=== PATIENT | female | born 1995 ===

== ENCOUNTER 2021-06-26 12:43 | Emergency (ER) | payer SELFPAY ==
[2021-06-26 13:25] VITALS: BP 105/65
[2021-06-26 15:41] LABS: Hematocrit 39.6 % (30.3-42.9); Hemoglobin 12.9 gm/dl (10.1-14.3); Mean Corpuscular HGB Conc 33 % (30-34); Mean Corpuscular Volume 92 fl (79-97); Platelet Count 267 K/mm3 (140-440); Red Blood Count 4.32 M/mm3 (3.65-5.03); Red Cell Distribution Width 13.8 % (13.2-15.2)
[2021-06-26 15:49] LABS: Alanine Aminotransferase 12 units/L (7-56); Albumin 4.6 g/dL (3.9-5); Blood Urea Nitrogen 11 mg/dL (7-17); Calcium 9.9 mg/dL (8.4-10.2); Hemolysis Index 9
[2021-06-26 15:50] LABS: BUN/Creatinine Ratio 16
--- NOTE | 2021-06-26 16:27 | Emergency Department Report ---
ED General Adult HPI - General Chief complaint: Medical Clearance Stated complaint: LEFT ARM PAIN/CHEST PAIN PUI?: No Time Seen by Provider: 06/26/21 15:23 Source: patient Mode of arrival: Ambulatory Limitations: No Limitations - History of Present Illness Initial comments: Patient is a 26-year-old male that comes to the emergency room complaining of left-sided chest pain and arm pain. Note that the person was born a male but identifies as a female. Patient is on hormone therapy including estrogen, progesterone, spironaldactone; abilify, zoloft and lithium Patient denies abdominal pain. Denies fever or chills. Denies cough or congestion. Denies shortness of breath. Denies discharge. Denies back pain. -: Gradual, year(s) Radiation: non-radiation Quality: stabbing Consistency: intermittent Improves with: none Worsens with: none Associated Symptoms: denies other symptoms, chest pain. denies: confusion, cough, diaphoresis, fever/chills, headaches, loss of appetite, malaise, nausea/vomiting, rash, seizure, shortness of breath, syncope, weakness Treatments Prior to Arrival: none - Related Data Allergies Allergy/AdvReac Type Severity Reaction Status Date / Time No Known Allergies Allergy Unverified 06/26/21 13:26 ED Review of Systems ROS: Stated complaint: LEFT ARM PAIN/CHEST PAIN Other details as noted in HPI Comment: All other systems reviewed and negative ED Past Medical Hx - Past Medical History Previous Medical History?: Yes Hx Psychiatric Treatment: Yes (bipolar) Additional medical history: Gender male, taking female hormones. - Surgical History Past Surgical History?: No - Family History Family history: no significant - Social History Smoking Status: Current Every Day Smoker Substance Use Type: Alcohol ED Physical Exam - General Limitations: No Limitations General appearance: alert, in no apparent distress - Head Head exam: Present: atraumatic, normocephalic - Eye Eye exam: Present: normal appearance - ENT ENT exam: Present: mucous membranes moist - Neck Neck exam: Present: normal inspection - Respiratory Respiratory exam: Present: normal lung sounds bilaterally. Absent: respiratory distress - Cardiovascular Cardiovascular Exam: Present: regular rate, normal rhythm. Absent: systolic murmur, diastolic murmur, rubs, gallop - GI/Abdominal GI/Abdominal exam: Present: soft, normal bowel sounds - Extremities Exam Extremities exam: Present: normal inspection - Back Exam Back exam: Present: normal inspection - Neurological Exam Neurological exam: Present: alert, oriented X3 - Psychiatric Psychiatric exam: Present: normal affect, normal mood - Skin Skin exam: Present: warm, dry, intact, normal color. Absent: rash ED Course Vital Signs 06/26/21 13:20 Temperature 98.5 F Pulse Rate 73 Respiratory 14 Rate Blood Pressure 105/65 O2 Sat by Pulse 98 Oximetry ED Medical Decision Making - Lab Data Result diagrams: 06/26/21 15:10 06/26/21 15:10 - EKG Data EKG shows normal: sinus rhythm Rate: normal - EKG Data When compared to previous EKG there are: no significant change Interpretation: no acute changes - Radiology Data Radiology results: report reviewed, image reviewed No acute process - Medical Decision Making Lab Results 06/26/21 06/26/21 06/26/21 Range/Units 15:10 15:10 16:19 WBC 17.8 H (4.5-11.0) K/mm3 RBC 4.32 (3.65-5.03) M/mm3 Hgb 12.9 (10.1-14.3) gm/dl Hct 39.6 (30.3-42.9) % MCV 92 (79-97) fl MCH 30 (28-32) pg MCHC 33 (30-34) % RDW 13.8 (13.2-15.2) % Plt Count 267 (140-440) K/mm3 Sodium 135 L (137-145) mmol/L Potassium 4.1 (3.6-5.0) mmol/L Chloride 99.5 (98-107) mmol/L Carbon Dioxide 26 (22-30) mmol/L Anion Gap 14 mmol/L BUN 11 (7-17) mg/dL Creatinine 0.7 (0.6-1.2) mg/dL Estimated GFR > 60 ml/min BUN/Creatinine Ratio 16 % Glucose 108 H (65-100) mg/dL Calcium 9.9 (8.4-10.2) mg/dL Phosphorus 3.50 (2.5-4.5) mg/dL Magnesium 2.00 (1.7-2.3) mg/dL Total Bilirubin < 0.20 (0.1-1.2) mg/dL AST 14 (5-40) units/L ALT 12 (7-56) units/L Alkaline Phosphatase 50 (35-129) units/L Total Protein 6.9 (6.3-8.2) g/dL Albumin 4.6 (3.9-5) g/dL Albumin/Globulin Ratio 2.0 % Urine Color Colorless (Yellow) Urine Turbidity Clear (Clear) Urine pH 7.0 (5.0-7.0) Ur Specific [place] 1.004 (1.003-1.030) Urine Protein <15 mg/dl (Negative) mg/dL Urine Glucose (UA) Neg (Negative) mg/dL Urine Ketones Neg (Negative) mg/dL Urine Blood Neg (Negative) Urine Nitrite Neg (Negative) Urine Bilirubin Neg (Negative) Urine Urobilinogen < 2.0 (<2.0) mg/dL Ur Leukocyte Esterase Neg (Negative) Urine WBC (Auto) < 1.0 (0.0-6.0) /HPF Urine RBC (Auto) 1.0 (0.0-6.0) /HPF U Epithel Cells (Auto) < 1.0 (0-13.0) /HPF Urine HCG, Qual Positive A (Negative) Vital Signs 06/26/21 13:20 Temperature 98.5 F Pulse Rate 73 Respiratory 14 Rate Blood Pressure 105/65 O2 Sat by Pulse 98 Oximetry False positive test noted. Patient on spironolactone. UA noted Labs noted WBC noted. Patient has no fever or chills. No cough. No abdominal pain. No back pain. Urine noted. Chest x-ray noted. I am assuming this is a stress re sponse or possibly related to her medications. She is undergoing transition from male to female I discussed the findings of the above results with patient. On discharge reexam patient states that she has been having this pain off and on for years. For some unknown reason she decided today she wanted to have it evaluated. Patient being discharged home with discharge plan of care including diet, medications, activity and follow-up. I encouraged her to follow-up with her physicians that are prescribing her hormones for they would best be able to monitor her response to them. - Differential Diagnosis Rule out URI, musculoskeletal pain Critical care attestation.: If time is entered above; I have spent that time in minutes in the direct care of this critically ill patient, excluding procedure time. ED Disposition Clinical Impression: Chest wall pain Disposition: HOME / SELF CARE / HOMELESS Is pt being admited?: No Does the pt Need Aspirin: No Condition: Stable Instructions: Fatigue, Nonspecific Chest Pain, Adult Additional Instructions: Stay well-hydrated with water Continue your home medications Follow-up with your PCP regarding your complaints. Labs, UA and x-ray normal today Tylenol Motrin for pain Referrals: ROSENDO KANG MD [Staff Physician] - 3-5 Days Time of Disposition: 18:17
[2021-06-26 16:28] LABS: Bilirubin,Urine NEG (Negative); Blood,Urine NEG (Negative); Color,Urine Colorless (Yellow); Protein,Urine <15 mg/dL mg/dL (Negative); Urobilinogen,Urine < 2.0 mg/dL (<2.0); WBC,Urine < 1.0 /HPF (0.0-6.0)
[2021-06-26 16:43] LABS: HCG Qualitative,Urine Positive (Negative)
--- NOTE | 2021-06-26 18:08 | XRay Report ---
CHEST 2 VIEWS INDICATION: cp. COMPARISON: None. FINDINGS: Support devices: None. Heart: Within normal limits. Lungs/Pleura: No acute air space or interstitial disease. Moderate dextroconvex scoliosis of the thor acic spine. No significant pleural effusion. IMPRESSION: No acute findings. Signer Name: Ashok Sequeira MD Signed: 06/26/2021 6:04 PM Workstation Name: [id number]
--- NOTE | 2021-06-27 17:59 | Electrocardiograph Report ---
[facility] Test Date: 2021-06-26 Test Time: 13:27:37 Pat Name: JULIO ROGER Department: Room: Gender: F Animal Husbandman: CERTIFIED NURSING ATTENDANT : 1995 Requested By: TIM WONG Order Number: [id number] Reading MD: Bebeto Lopez Measurements Intervals [place] Rate: 62 P: 77 OK: 134 QRS: 84 QRSD: 90 T: 70 QT: 376 QTc: 383 Interpretive Statements Sinus rhythm ST elev, probable normal early repol pattern No previous ECG available for comparison Electronically Signed On 06-27-2021 17:59:00 EDT by Bebeto Lopez
== END 2021-06-26 18:20 | disposition home or self-care (01) ==
LOC: ED 12:43
DX: R07.89 Other chest pain (principal); F31.9 Bipolar disorder, unspecified; F17.200 Nicotine dependence, unspecified, uncomplicated; Z72.89 Other problems related to lifestyle
CPT/HCPCS: 36415; 71046; 80053; 81001; 81025; 83735; 84100; 85027; 93005; 99284